=== PATIENT | female | born 1940 | race Caucasian/White ===

== ENCOUNTER → 2016-08-21 | Outpatient (CLI) | payer OTHER | LOC: FIMAGING 09:19 | PROVIDERS: ATTEND Family Medicine | DX: Z12.31 Encounter for screening mammogram for malignant neoplasm of breast (principal) | CPT/HCPCS: G0202 ==

== ENCOUNTER 2018-05-29 13:07 | Observation (INO) | payer OTHER ==
--- NOTE | 2018-05-29 13:40 | EDPHY ---
H & P Time Seen by Provider: 05/29/18 13:33 HPI/ROS: Chief complaint. fall HPI. 78-year-old who just moved from [place] and drove across country the last 3 days arriving yesterday. She arrives by EMS. EMS blood sugar was elevated. She was walking the dog and she feels that she had a misstep and tripped and had a mechanical fall. She put her arms out. She tells me she did not strike her head or lose consciousness. She does have neck pain. She has left shoulder pain and has had chronic left rotator cuff problems. She has had chronic neck pain that is exacerbated. She has had bilateral knee replacements and struck both knees. After her fall she got nauseated and sweaty and shaky and felt like she was going to pass out. However no chest discomfort or shortness of breath. No abdominal pain. ROS 10 systems were reviewed and negative with the exception of the elements mentioned in the history of present illness Past Medical/Surgical History: Left rotator cuff injury, back surgery, type 2 diabetes, hypertension, mitral valve prolapse Social History: Single, nonsmoker, no alcohol Smoking Status: Former smoker Physical Exam: General Appearance: Alert well-developed female mild distress vital signs are stable Eyes: Pupils equal and round no pallor or injection. ENT, Mouth: Mucous membranes are moist. Respiratory: There are no retractions, lungs are clear to auscultation. Cardiovascular: Regular rate and rhythm. Gastrointestinal: Abdomen is soft and nontender, no masses, bowel sounds normal. Neurological: Awake and alert, sensory and motor exams grossly normal. Skin: Warm and dry, no rashes. Musculoskeletal: Neck is diffusely tender. No T, L, S spine tenderness. Extremities left shoulder pain without deformity. Bilateral knee pain without deformity or swelling Psychiatric: Patient is oriented X 3, there is no agitation. Constitutional: Initial Vital Signs Temperature (C) 36.7 C 05/29/18 13:11 Heart Rate 82 05/29/18 13:11 Respiratory Rate 18 05/29/18 13:11 Blood Pressure 132/77 H 05/29/18 13:11 O2 Sat (%) 92 05/29/18 13:11 O2 Delivery Mode Room Air Allergies/Adverse Reactions: codeine [Codeine] Allergy (Severe, Verified 08/16/15 07:33) Other-Enter Comments Sulfa (Sulfonamide Antibiotics) Allergy (Severe, Verified 02/15/14 10:13) Other-Enter Comments ALL PAIN MEDS > NAUSEA/EMESIS Allergy (Uncoded 02/15/14 10:13) Z PAC Allergy (Uncoded 02/15/14 12:35) Home Medications: Medication Instructions Recorded Albuterol Sulfate [Albuterol 2 puffs IH BID PRN 09/06/13 Inhaler Hfa] Cholecalciferol Vit D3 [Vitamin D3 1,000 units PO DAILY 09/06/13 (*)] FLUTICASONE/SALMETEROL [ADVAIR HFA 2 puffs IH BID 09/06/13 230-21 MCG INHALER] Fluticasone Nasal [Flonase Nasal 2 sprays NASAL HS 09/06/13 [place]] Herbals/Supplements -Info Only 1 ea PO DAILY 09/06/13 Montelukast Sodium [Singulair 10 10 mg PO DAILY@1800 09/06/13 mg (*)] Multivitamins [Multivitamin (*)] 1 each PO DAILY 09/06/13 [place]-3 Fatty Acids [Fish Oil 1000 2,000 mg PO DAILY 09/06/13 mg (*)] Rosuvastatin Calcium [Crestor 5mg] 5 mg PO HS 09/06/13 metFORMIN HCL [Glucophage 500 mg 500 mg PO BID 09/06/13 (*)] Magnesium Oxide [Magnesium Oxide 400 mg PO DAILY 02/15/14 400 mg (*)] Ascorbic Acid [Vitamin C 500 mg 1,000 mg PO DAILY 08/16/15 (*)] Azelastine [Astelin] 2 sprays EACHNARE BID 08/16/15 Azithromycin [Zithromax] 250 mg PO Q2D 08/16/15 CETIRIZINE HCL [ZYRTEC] 5 mg PO DAILY 08/16/15 Famotidine [Pepcid 20 MG (*)] 20 mg PO DAILY 08/16/15 Valsartan [Diovan (*)] 160 mg PO BID 08/16/15 Verapamil 200mg 200 mg PO DAILY 08/16/15 Acetaminophen/ASA/Caffeine 1 each PO Q6 PRN #0 tab 08/19/15 [Excedrin Tablet (*)] Spironolactone [Aldactone 25 MG 25 mg PO BID #60 tab 08/19/15 (*)] Medical Decision Making - Diagnostics EKG Interpretation: EKG interpreted by me shows normal sinus rhythm. 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 No other significant ST elevation or depression. No arrhythmia. The rate is 85 Imaging Results: Imaging Impressions Cervical Spine CT 05/29/18 13:56 Impression: 1. No acute abnormality seen about the cervical spine. 2. Multilevel degenerative disk disease along with facet hypertrophy with associated spinal and neuroforaminal stenoses. Findings discussed with Jimmy Wilson M.D. at 14:45 hour, 05/29/2018. Chest X-Ray 05/29/18 13:56 Impression: Clear lungs. Negative chest. Knee X-Ray 05/29/18 13:57 Impression: Good alignment. No acute fracture or loosening of the total knee arthroplasty. Knee X-Ray 05/29/18 13:57 Impression: Negative. No fracture or loosening of the total knee arthroplasty. Shoulder X-Ray 05/29/18 13:57 Impression: 1. No acute fracture or dislocation. 2. Suspect chronic rotator cuff tear. X-ray left shoulder, both knees, chest x-ray interpreted by me is normal Cervical spine CT shows multilevel DJD but no evidence of acute fracture or dislocation Procedures: IV normal saline ED Course/Re-evaluation: Patient is found to have markedly abnormal renal function. Previously she has had BUN of 35 and a creatinine of 1.0. Today her BUN is 70 for with a creatinine of 1.8 I consulted discussed case with , hospitalist, who agrees to the admission Patient and family and I discussed imaging lab EKG findings. We discussed treatment plan including recommendation for admission. This is because of the near syncope and appearance of acute renal failure. They expressed understanding and agreement Differential Diagnosis: Near syncope and minor trauma without fracture or dislocation of the cervical spine or shoulder or knees. [place] elevation of BUN and creatinine compared to baseline. This may be due to dehydration from driving across country verses renal disease. No evidence for acute CA or pneumonia - Data Points Laboratory Results: Laboratory Results 05/29/18 13:30 05/29/18 13:07 05/29/18 05/29/18 05/29/18 14:38 13:56 13:30 WBC 14.59 10^3/uL H 10^3/uL (3.80-9.50) RBC 4.33 10^6/uL 10^6/uL (4.18-5.33) Hgb 12.8 g/dL g/dL (12.6-16.3) Hct 40.3 % % (38.0-47.0) MCV 93.1 fL fL (81.5-99.8) MCH 29.6 pg pg (27.9-34.1) MCHC 31.8 g/dL L g/dL (32.4-36.7) RDW 14.5 % % (11.5-15.2) Plt Count 265 10^3/uL 10^3/uL (150-400) MPV 11.6 fL fL (8.7-11.7) Neut % (Auto) 47.3 % % (39.3-74.2) Lymph % (Auto) 44.5 % % (15.0-45.0) [place] % (Auto) 5.7 % % (4.5-13.0) Eos % (Auto) 1.2 % % (0.6-7.6) Baso % (Auto) 0.4 % % (0.3-1.7) Nucleat RBC Rel Count 0.0 % % (0.0-0.2) Absolute Neuts (auto) 6.90 10^3/uL H 10^3/uL (1.70-6.50) Absolute Lymphs (auto) 6.49 10^3/uL H 10^3/uL (1.00-3.00) Absolute Monos (auto) 0.83 10^3/uL H 10^3/uL (0.30-0.80) Absolute Eos (auto) 0.18 10^3/uL 10^3/uL (0.03-0.40) Absolute Basos (auto) 0.06 10^3/uL 10^3/uL (0.02-0.10) Absolute Nucleated RBC 0.00 10^3/uL 10^3/uL (0-0.01) Immature Gran % 0.9 % % (0.0-1.1) Immature Gran # 0.13 10^3/uL H 10^3/uL (0.00-0.10) RBC/WBC/PLT Morphology TNP Platelet Estimate TNP Sodium Potassium Chloride Carbon Dioxide Anion Gap BUN Creatinine Estimated GFR Glucose Calcium Phosphorus POC Troponin I 0.02 ng/mL ng/mL (0.00-0.08) Urine Color YELLOW Urine Appearance CLEAR Urine pH 5.0 (5.0-7.5) Ur Specific [place] 1.013 (1.002-1.030) Urine Protein NEGATIVE (NEGATIVE) Urine Ketones NEGATIVE (NEGATIVE) Urine Blood NEGATIVE (NEGATIVE) Urine Nitrate NEGATIVE (NEGATIVE) Urine Bilirubin NEGATIVE (NEGATIVE) Urine Urobilinogen NEGATIVE EU EU (0.2-1.0) Ur Leukocyte Esterase 1+ H (NEGATIVE) Urine RBC 1-3 /hpf /hpf (0-3) Urine WBC 5-10 /hpf H /hpf (0-3) Ur Epithelial Cells TRACE /lpf /lpf (NONE-1+) Hyaline Casts 15-25 /lpf H /lpf (0-1) Urine Mucus TRACE /lpf /lpf (NONE-1+) Urine Glucose NEGATIVE (NEGATIVE) 05/29/18 13:07 WBC RBC Hgb Hct MCV MCH MCHC RDW Plt Count MPV Neut % (Auto) Lymph % (Auto) [place] % (Auto) Eos % (Auto) Baso % (Auto) Nucleat RBC Rel Count Absolute Neuts (auto) Absolute Lymphs (auto) Absolute Monos (auto) Absolute Eos (auto) Absolute Basos (auto) Absolute Nucleated RBC Immature Gran % Immature Gran # RBC/WBC/PLT Morphology Platelet Estimate Sodium 135 mEq/L mEq/L (135-145) Potassium 4.5 mEq/L mEq/L (3.5-5.2) Chloride 96 mEq/L L mEq/L (97-110) Carbon Dioxide 25 mEq/l mEq/l (22-31) Anion Gap 14 mEq/L mEq/L (6-14) BUN 74 mg/dL H mg/dL (7-23) Creatinine 1.8 mg/dL H mg/dL (0.6-1.0) Estimated GFR 27 Glucose 175 mg/dL H mg/dL (70-100) Calcium 11.8 mg/dL H mg/dL (8.5-10.4) Phosphorus 3.2 mg/dL mg/dL (2.5-4.5) POC Troponin I Urine Color Urine Appearance Urine pH Ur Specific [place] Urine Protein Urine Ketones Urine Blood Urine Nitrate Urine Bilirubin Urine Urobilinogen Ur Leukocyte Esterase Urine RBC Urine WBC Ur Epithelial Cells Hyaline Casts Urine Mucus Urine Glucose Medications Given: Discontinued Medications Sodium Chloride (Ns) 500 mls @ 0 mls/hr IV EDNOW ONE; Wide Open PRN Reason: Protocol Stop: 05/29/18 13:57 Last Admin: 05/29/18 14:18 Dose: 500 mls Point of Care Test Results: Chemistry 05/29/18 14:38 POC Troponin I 0.02 ng/mL ng/mL (0.00-0.08) Departure - Dep[facility]ure [facility] Clinical Impression: Near syncope Renal failure Qualifiers: Renal failure chronicity: unspecified chronicity Qualified Code(s): N19 - Unspecified kidney failure Condition: Fair
[2018-05-29] MEDS ORDERED: NS 500 ML IV ONE (13:56)
--- NOTE | 2018-05-29 14:51 | CPEKG ---
Test Reason : OPEN Blood Pressure : / mmHG Vent. Rate : 085 BPM Atrial Rate : 085 BPM P-R Int : 190 ms QRS Dur : 107 ms QT Int : 399 ms P-R-T Axes : 036 -15 029 degrees QTc Int : 475 ms Sinus rhythm Probable left atrial enlargement Inferior infarct, old Consider anterior infarct Lateral leads are also involved Confirmed by Francisca Scott ([id number]) on 05/29/2018 2:51:27 PM Referred By: NESTOR BLANCO Confirmed By:Francisca Scott
[2018-05-29 15:25] LABS: PLATELET COUNT 265 10^3/uL (150-400)
--- NOTE | 2018-05-29 16:32 | PDGENHP ---
History and Physical - Chief Complaint fall, dizziness - History of Present Illness 78 yo female with h/o htn, hld presents to ED after a mechanical fall. She is certain she did not experience syncope. She was letting the dogs out on some brick steps and tripped over a step, falling onto her outstretched hands. She landed on her hands and knees, suffering increased left shoulder pain in setting of known chronic rotator cuff tear. She got up to a seated position and then began to feel nauseous, diaphoretic and lightheaded. EMS was called. She reports her BP was low on arrival and she was bradycardic. She denies any dizziness, CP, SOB, palpitations, or any other symptoms prior to her fall and states the onset of her symptoms was after the fall, while coping with acute pain and distress. She did not hit her head. She did not pass out. No fevers , cough, N/V, abdominal pain or urinary symptoms. In the ED, she received 500 cc's NS bolus. Labs revealed a Cr of 1.9, which is elevated from her baseline. She is admitted for further management. History Information - Allergies/Home Medication List Allergies/Adverse Reactions: codeine [Codeine] Allergy (Severe, Verified 08/16/15 07:33) Other-Enter Comments Sulfa (Sulfonamide Antibiotics) Allergy (Severe, Verified 02/15/14 10:13) Other-Enter Comments ALL PAIN MEDS > NAUSEA/EMESIS Allergy (Uncoded 02/15/14 10:13) Z PAC Allergy (Uncoded 02/15/14 12:35) Home Medications: Albuterol Sulfate [Albuterol Inhaler Hfa] 2 puffs IH BID PRN 09/06/13 [Last Taken 02/13/14] Cholecalciferol Vit D3 [Vitamin D3 (*)] 1,000 units PO DAILY 09/06/13 [Last Taken 09/06/13] FLUTICASONE/SALMETEROL [ADVAIR HFA 230-21 MCG INHALER] 2 puffs IH BID 09/06/13 [ Last Taken 08/15/15 20:00] Fluticasone Nasal [Flonase Nasal [place]] 2 sprays NASAL HS 09/06/13 [Last Taken 08/15/15] Herbals/Supplements -Info Only 1 ea PO DAILY 07/27/14 [Last Taken 09/06/13] Montelukast Sodium [Singulair 10 mg (*)] 10 mg PO DAILY@1800 09/06/13 [Last Taken 08/15/15] Multivitamins [Multivitamin (*)] 1 each PO DAILY 09/06/13 [Last Taken 02/14/14] [place]-3 Fatty Acids [Fish Oil 1000 mg (*)] 2,000 mg PO DAILY 09/06/13 [Last Taken 02/14/14] Rosuvastatin Calcium [Crestor 5mg] 5 mg PO HS 09/06/13 [Last Taken 08/15/15] metFORMIN HCL [Glucophage 500 mg (*)] 500 mg PO BID 09/06/13 [Last Taken 20:00] Magnesium Oxide [Magnesium Oxide 400 mg (*)] 400 mg PO DAILY 02/15/14 [Last Taken 02/14/14] Ascorbic Acid [Vitamin C 500 mg (*)] 1,000 mg PO DAILY 08/16/15 [Last Taken Unknown] Azelastine [Astelin] 2 sprays EACHNARE BID 08/16/15 [Last Taken 08/15/15 20:00] Azithromycin [Zithromax] 250 mg PO Q2D 08/16/15 [Last Taken 08/15/15] CETIRIZINE HCL [ZYRTEC] 5 mg PO DAILY 08/16/15 [Last Taken Unknown] Famotidine [Pepcid 20 MG (*)] 20 mg PO DAILY 08/16/15 [Last Taken Unknown] Valsartan [Diovan (*)] 160 mg PO BID 08/16/15 [Last Taken 08/15/15 20:00] Verapamil 200mg 200 mg PO DAILY 08/16/15 [Last Taken 08/15/15] I have personally reviewed and updated: family history, medical history, social history, surgical history - Past Medical History asthma, diabetes type 2, hypertension, hyperlipidemia Additional medical history: H/O Meniere's. Chronic rotator cuff tear. Cervical stenosis - Surgical History Reports: hysterectomy Additional surgical history: B/L knee replacements - Family History Positive for: non-pertinent - Social History Smoking Status: Former smoker Alcohol Use: Occasionally Drug Use: None Additional social history: Just moved here from [place] Review of Systems Review of Systems: ROS: 10pt was reviewed & negative except for what was stated in HPI & below Physical Exam Physical Exam: Temp Pulse Resp BP Pulse Ox 36.7 C 85 21 H 127/74 H 94 05/29/18 15:00 05/29/18 15:00 05/29/18 15:00 05/29/18 15:00 05/29/18 15:00 Constitutional: no apparent distress Eyes: PERRL Ears, Nose, Mouth, Throat: moist mucous membranes Cardiovascular: regular rate and rhythym, no murmur, rub, or gallop Respiratory: no respiratory distress, clear to auscultation, reduced air movement Gastrointestinal: normoactive bowel sounds, soft, non-tender abdomen Skin: warm Musculoskeletal: full muscle strength, other (pain with ROM of left shoulder) Neurologic: AAOx3 Psychiatric: interacting appropriately Lab Data & Imaging Review 05/29/18 13:30 05/29/18 13:07 WBC 14.59 10^3/uL (3.80-9.50) H 05/29/18 13:30 RBC 4.33 10^6/uL (4.18-5.33) 05/29/18 13:30 Hgb 12.8 g/dL (12.6-16.3) 05/29/18 13:30 Hct 40.3 % (38.0-47.0) 05/29/18 13:30 MCV 93.1 fL (81.5-99.8) 05/29/18 13:30 MCH 29.6 pg (27.9-34.1) 05/29/18 13:30 MCHC 31.8 g/dL (32.4-36.7) L 05/29/18 13:30 RDW 14.5 % (11.5-15.2) 05/29/18 13:30 Plt Count 265 10^3/uL (150-400) 05/29/18 13:30 MPV 11.6 fL (8.7-11.7) 05/29/18 13:30 Neut % (Auto) 47.3 % (39.3-74.2) 05/29/18 13:30 Lymph % (Auto) 44.5 % (15.0-45.0) 05/29/18 13:30 [place] % (Auto) 5.7 % (4.5-13.0) 05/29/18 13:30 Eos % (Auto) 1.2 % (0.6-7.6) 05/29/18 13:30 Baso % (Auto) 0.4 % (0.3-1.7) 05/29/18 13:30 Nucleat RBC Rel Count 0.0 % (0.0-0.2) 05/29/18 13:30 Absolute Neuts (auto) 6.90 10^3/uL (1.70-6.50) H 05/29/18 13:30 Absolute Lymphs (auto) 6.49 10^3/uL (1.00-3.00) H 05/29/18 13:30 Absolute Monos (auto) 0.83 10^3/uL (0.30-0.80) H 05/29/18 13:30 Absolute Eos (auto) 0.18 10^3/uL (0.03-0.40) 05/29/18 13:30 Absolute Basos (auto) 0.06 10^3/uL (0.02-0.10) 05/29/18 13:30 Absolute Nucleated RBC 0.00 10^3/uL (0-0.01) 05/29/18 13:30 Immature Gran % 0.9 % (0.0-1.1) 05/29/18 13:30 Immature Gran # 0.13 10^3/uL (0.00-0.10) H 05/29/18 13:30 RBC/WBC/PLT Morphology TNP 05/29/18 13:30 Platelet Estimate TNP 05/29/18 13:30 Sodium 135 mEq/L (135-145) 05/29/18 13:07 Potassium 4.5 mEq/L (3.5-5.2) 05/29/18 13:07 Chloride 96 mEq/L (97-110) L 05/29/18 13:07 Carbon Dioxide 25 mEq/l (22-31) 05/29/18 13:07 Anion Gap 14 mEq/L (6-14) 05/29/18 13:07 BUN 74 mg/dL (7-23) H 05/29/18 13:07 Creatinine 1.8 mg/dL (0.6-1.0) H 05/29/18 13:07 Estimated GFR 27 05/29/18 13:07 Glucose 175 mg/dL (70-100) H 05/29/18 13:07 Calcium 11.8 mg/dL (8.5-10.4) H 05/29/18 13:07 Phosphorus 3.2 mg/dL (2.5-4.5) 05/29/18 13:07 POC Troponin I 0.02 ng/mL (0.00-0.08) 05/29/18 14:38 Urine Color YELLOW 05/29/18 13:56 Urine Appearance CLEAR 05/29/18 13:56 Urine pH 5.0 (5.0-7.5) 05/29/18 13:[address] [place] 1.013 (1.002-1.030) 05/29/18 13:56 Urine Protein NEGATIVE (NEGATIVE) 05/29/18 13:56 Urine Ketones NEGATIVE (NEGATIVE) 05/29/18 13:56 Urine Blood NEGATIVE (NEGATIVE) 05/29/18 13:56 Urine Nitrate NEGATIVE (NEGATIVE) 05/29/18 13:56 Urine Bilirubin NEGATIVE (NEGATIVE) 05/29/18 13:56 Urine Urobilinogen NEGATIVE EU (0.2-1.0) 05/29/18 13:56 Ur Leukocyte Esterase 1+ (NEGATIVE) H 05/29/18 13:56 Urine RBC 1-3 /hpf (0-3) 05/29/18 13:56 Urine WBC 5-10 /hpf (0-3) H 05/29/18 13:56 Ur Epithelial Cells TRACE /lpf (NONE-1+) 05/29/18 13:56 Hyaline Casts 15-25 /lpf (0-1) H 05/29/18 13:56 Urine Mucus TRACE /lpf (NONE-1+) 05/29/18 13:56 Urine Glucose NEGATIVE (NEGATIVE) 05/29/18 13:56 Visualized and Interpreted Chest x-ray results: Yes Chest X-Ray results: no infiltrate Visualized and Interpreted EKG results: Yes EKG Interpretation: Positive for: normal sinsus rhythm, other (no acute ischemia , relatively unchanged from prior) Assessment & Plan Assessment: Pre-syncope and nausea - occurred after fall, suspect she had a vagal event in setting of pain and distress. Symptoms have completely resolved. -monitor on telemetry -check orthostatic VS -trend trop -IVF's for hydration Mechanical fall - PT/OT evals EMMETT - elevated BUN suggests pre-renal etiology. -check urine Na and urine osm to calculate FeNa -IVF's for hydration, recheck renal function in am -would check u/s in am if Cr not improving -avoid nephrotoxic drugs -hold ARB, aldactone and MTF Hypercalcemia - mild, likely related to above -will hydrate and recheck -send PTH Leukocytosis - no infectious symptoms, afebrile. Could be stress response or volume depletion. -recheck in am after hydration DM type 2 - hold MTF, SSI for now Hypertension - normotensive on arrival -cont home norvasc -prn hydralazine -holding aldactone and ARB as above due to EMMETT Hyperlipidemia - cont home statin Diastolic dysfunction - reviewed echo from 08/2015, nl EF 65%, +diastolic dysfunction, mild LVH, mild MR -caution with IVF's Chronic rotator cuff tear - increased pain after fall onto outstretched arms -pain control with tylenol and lidoderm, pt does not want opioids Cervical spinal stenosis - outpt f/u Full code DVT PPLX - PEREZ Dispo - obs
[2018-05-29] MEDS ORDERED: ACETAMINOPHEN 325 MG TAB PO PRN (16:36)
[2018-05-29] MEDS ORDERED: ONDANSETRON DISINTEGRATING 4 MG TAB PO PRN (16:36)
[2018-05-29] MEDS ORDERED: ONDANSETRON 4 MG/2 ML VIAL IVP PRN (16:36)
[2018-05-29] MEDS ORDERED: NS 1,000 ML IV SCH (16:45)
[2018-05-29] MEDS ORDERED: D50W 25 GM/50 ML SYR IVP PRN (16:45)
[2018-05-29] MEDS ORDERED: hydrALAZINE 25 MG TAB PO PRN (17:21)
[2018-05-29] MEDS ORDERED: ALBUTEROL 60 PUFFS/8 GM MDI IH PRN ×2 (17:22→18:34)
[2018-05-29] MEDS: ACETAMINOPHEN 500 MG TAB PO SCH (18:23)
[2018-05-29] MEDS: INSULIN LISPRO 100 UNIT/ML SC SCH (18:24)
[2018-05-29] MEDS ORDERED: SENNOSIDES 1 TAB PO PRN (18:34)
[2018-05-29] MEDS ORDERED: amLODIPine BESYLATE 5 MG TAB PO SCH (21:00)
[2018-05-29] MEDS ORDERED: FLUTICASONE/SALMETER 250/50MCG DISKUS IH SCH (21:00)
[2018-05-29] MEDS ORDERED: ACETAMN/DIPHENHYDRAMINE 500/25MG TAB PO SCH (21:00)
[2018-05-29] MEDS ORDERED: PRAVASTATIN SODIUM 40 MG TAB PO SCH (21:00)
[2018-05-29] MEDS ORDERED: FAMOTIDINE 20 MG TAB PO SCH (21:00)
[2018-05-29] MEDS ORDERED: AZELASTINE NASAL MDI EACHNARE SCH (21:00)
[2018-05-29] MEDS ORDERED: FLUTICASONE NASAL 120 SPRAYS/16 GM MDI EACHNARE SCH (21:00)
[2018-05-29] MEDS: ADVAIR IH SCH (22:15)
[2018-05-29] MEDS: HEPARIN 5,000 UNIT/0.5 ML INJ SC SCH (22:36)
[2018-05-29] MEDS ORDERED: LIDOCAINE 4%/MENTHOL 1% PATCH TD SCH (22:45)
[2018-05-30] MEDS: ACETAMINOPHEN 500 MG TAB PO SCH ×3 (02:36→10:20)
[2018-05-30 05:14] LABS: PLATELET COUNT 182 10^3/uL (150-400)
[2018-05-30] MEDS: HEPARIN 5,000 UNIT/0.5 ML INJ SC SCH (05:49)
[2018-05-30 07:21] VITALS: BP 130/59
[2018-05-30] MEDS: ADVAIR IH SCH (08:56)
[2018-05-30] MEDS ORDERED: MAGNESIUM OXIDE 400 MG TAB PO SCH (09:00)
[2018-05-30] MEDS ORDERED: CYANO/VITAMIN B12 1000 MCG TAB PO SCH (09:00)
[2018-05-30] MEDS ORDERED: CHOLECALCIFEROL VIT D3 1,000 UNITS TAB PO SCH (09:00)
[2018-05-30] MEDS ORDERED: CETIRIZINE 10 MG TAB PO SCH (09:00)
[2018-05-30] MEDS ORDERED: ASCORBIC ACID 500 MG TAB PO SCH (09:00)
[2018-05-30] MEDS ORDERED: PATCH REMOVAL 1 EA PATCH TD SCH (09:00)
[2018-05-30] MEDS ORDERED: VERAPAMIL HCL 200 MG PO SCH (09:00)
--- NOTE | 2018-05-30 10:09 | PDIAF ---
- Diagnosis Diagnosis: EMMETT - Medication Management Discharge Medications: electronically signed and located in the Home Medication List. - Orders Services needed: Physical Therapy - Follow Up Care Current Providers and Referrals: Patient,NotPresent [Unknown] - As per Instructions
--- NOTE | 2018-05-30 10:26 | ASMTLACE ---
LACE Length of stay for Answers: Less than 1 day current admission Acuity / Level of Answers: Yes Care: Did the patient have an inpatient admission? Comorbidities - select Answers: Diabetes (uncontrolled or all that apply controlled) Other Notes: HTN, HLD, asthma # of Emergency department Answers: 1-2 visits in the last 6 months Score: 6 Date Signed: 05/30/2018 10:26 AM Electronically Signed By:Shiloh Gonzalez RN
--- NOTE | 2018-05-30 10:30 | ASDISCHSUM ---
Discharge Information Plan Status:Home with No Needs Medically Cleared to Leave:05/30/2018 Discharge Date:05/30/2018 CM D/C Disposition:Home, Routine, Self-Care ADT D/C Disposition: Projected Discharge Date:05/30/2018 Transportation at D/C: Discharge Delay Reason: Follow-Up Date:05/30/2018 Discharge Slot: Final Diagnosis: Placement Information Patient Contact Information Contact Name:NARCISA Relationship:Daughter Address:[address] City:[place] Alternate Phone: State/Zip Code:[place] [address] Email: Financial Information Financial Class:Medicare Primary Plan Desc:MEDICARE INPATIENT Primary Plan Number:[id number] Secondary Plan Desc:[facility] Secondary Plan Number:[id number] Assessment Information LACE LACE Length of stay for Answers: Less than 1 day current admission Acuity / Level of Answers: Yes Care: Did the patient have an inpatient admission? Comorbidities - select Answers: Diabetes (uncontrolled or all that apply controlled) Other Notes: HTN, HLD, asthma # of Emergency department Answers: 1-2 visits in the last 6 months Score: 6 Date Signed: 05/30/2018 10:26 AM Electronically Signed By:Shiloh Gonzalez RN Case Management Discharge Plan Note Case Management Discharge Discharge Order Complete? Answers: Yes Patient to Obtain Answers: Independently Medications Discharge Comments Notes: 05/30/2018 Case Management Note Pt to discharge home with follow up as directed. Discussed w/RN and PT. PT cleared for outpatient physical therapy. No further case management d/c needs identified. Date Signed: 05/30/2018 10:29 AM Electronically Signed By:Shiloh Gonzalez RN Intervention Information
[2018-05-30] MEDS: INSULIN LISPRO 100 UNIT/ML SC SCH (13:44)
--- NOTE | 2018-05-30 15:59 | PDDCSUM ---
Discharge Summary Discharge Summary: Date of Admission: 05/29/2018 Date of Discharge: 05/30/2018 Consults: N/A Procedures: B/l Knee XR, CT C Spine, L Shoulder Xr Followup: PCP, Cardiology Pre-syncope and nausea - occurred after fall, suspect she had a vagal event in setting of pain and distress. Symptoms have completely resolved. -monitored on telemetry -orthostatic VS negative -Trop negative -S/p IVF Mechanical fall - PT recommending OP PT, given script EMMETT - elevated BUN suggests pre-renal etiology. -IVF's for hydration, Cr returned to baseline on morning of discharge -avoid nephrotoxic drugs -Restarted home medications including Lasix 20 mg qd and Aldactone 12.5 mg qod, recommended close followup with leadership program associate Hypercalcemia - mild, likely related to above -s/p hydrate with normalization Leukocytosis - no infectious symptoms, afebrile. Could be stress response or volume depletion. -Improved to 10.2 this AM DM type 2 - held MTF, SSI as inpatient Hypertension - normotensive on arrival -cont home norvasc -prn hydralazine -holding aldactone and ARB as above due to EMMETT, restarted upon d/c as above Hyperlipidemia - cont home statin Diastolic dysfunction - reviewed echo from 08/2015, nl EF 65%, +diastolic dysfunction, mild LVH, mild MR -caution with IVF's Chronic rotator cuff tear - increased pain after fall onto outstretched arms -pain control with tylenol and lidoderm, pt does not want opioids Cervical spinal stenosis - outpt f/u Time spent on discharge was >35 minutes with >50% of time spent on patient education and counseling
[2018-05-30] MEDS ORDERED: MONTELUKAST SODIUM 10 MG TAB PO SCH (18:00)
[2018-05-30] MEDS ORDERED: FAMOTIDINE 20 MG TAB PO SCH (21:00)
[2018-05-31] MEDS ORDERED: AZITHROMYCIN 250 MG TAB PO SCH (09:00)
== END 2018-05-30 11:50 | disposition home or self-care (01) ==
LOC: EDUNIT# → INTOOBSV 15:05 → F2W 17:55
PROVIDERS: ADMIT Student in an Organized Health Care Education/Training Program; ATTEND Internal Medicine
DX: R55 Syncope and collapse (principal); M75.112 Incomplete rotator cuff tear or rupture of left shoulder, not specified as traumatic; M25.512 Pain in left shoulder; W01.0XXA Fall on same level from slipping, tripping and stumbling without subsequent striking against object, initial encounter; N17.9 Acute kidney failure, unspecified; Y93.K9 Activity, other involving animal care; M48.02 Spinal stenosis, cervical region; Y92.008 Other place in unspecified non-institutional (private) residence as the place of occurrence of the external cause; E86.0 Dehydration; E11.9 Type 2 diabetes mellitus without complications; I10 Essential (primary) hypertension; E78.5 Hyperlipidemia, unspecified; E83.52 Hypercalcemia; D72.829 Elevated white blood cell count, unspecified; J45.909 Unspecified asthma, uncomplicated; I50.30 Unspecified diastolic (congestive) heart failure; Z96.653 Presence of artificial knee joint, bilateral; Z87.891 Personal history of nicotine dependence
CPT/HCPCS: 71045; 72125; 73030; 73564; 93005; 97116; 97161; 97165; G0378; J1644; J1815; 84484-ER